=== PATIENT | female | born 1960 | race Caucasian/White ===

== ENCOUNTER 2023-09-23 14:01 | Emergency (ER) | payer OTHER, SELFPAY ==
[2023-09-23] VITALS (7 sets, daily range): BP systolic 124–152; BP diastolic 80–100
--- NOTE | 2023-09-23 15:32 | ED.GENMED ---
History of Present Illness
<Sandee Castorena NP - Last Filed: 09/23/23 23:43>
General
Chief Complaint: Abdominal Symptoms
Source: patient and family (daughter)
Time Seen by Provider: 09/23/23 15:01
Nursing documentation reviewed up to this point in time: agreed with
Travel History
Have you had any contact with someone who has COVID-19?: No
Do you have any symptoms of coronavirus? Fever > 100 degrees, chills, cough, shortness of breath, sore throat, loss of taste or smell, muscle aches, or headache?: No
History of Present Illness
History of Present Illness:
Patient to ED with complaint of RUE pain, n/v x 2 days. 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 Receiving treatment thru [facility]. According to daughter she is receiveing chemo and immunotherapy. Last Chemo was 13 days ago. Next treatment is
scheduled for tomorrow. Daughter reports that she has complained of RUE pain since May. Taking MSO4 and oxycodone for pain but it has not been relieving her pain this weekend. Patient also reports low grade temp at home. Brought to ED by
family friend for eval.
Past History
<Sandee Castorena NP - Last Filed: 09/23/23 23:43>
Past History
ED Past Medical History: Arrthythmia (SVT), Cancer (cholangiocarcinoma), HTN and NIDDM
ED Past Surgical History: Cardiac (abation), Orthopedic, Tonsilectomy and Other (hernia repair x 2, breast surgery)
Social History
Tobacco: Smoker (1ppd)
Alcohol: None
Drug: Marijuana (occasional)
Personal: Single
Living: alone
Review of Systems
<Sandee Castorena NP - Last Filed: 09/23/23 23:43>
Review of Systems
Allergies reviewed?: Yes
All Other Systems: ROS reviewed and negative except as documented in HPI and ROS
Constitutional: Reports fever (low grade temp at home)
EENT: Reports no symptoms
Respiratory: Reports no symptoms
Cardiac: Reports no symptoms
ABD/GI: Reports abdominal pain (RUQ, right flank), nausea and vomiting
: Reports no symptoms
Musculoskeletal: Reports joint pain (RUE pain)
Skin: Reports no symptoms
Neurological: Reports no symptoms
Psychiatric: Reports no symptoms
Phy Exam
<Sandee Castorena NP - Last Filed: 09/23/23 23:43>
General Physical Exam
General Presentation: no apparent distress
General age: appears stated age
General Skin: warm and dry
General Habitus: frail
General Mental: alert
Cardiovascular Exam
Cardiovascular Exam: regular rate/rhythm and no edema
Pulmonary Exam
Pulmonary Exam: lungs clear and no respiratory distress
Gastrointestinal Exam
Gastrointestinal Exam: normal bowel sounds, soft, no pulsatile mass, no cva tenderness and ascites
Palpation: left upper quadrant: No tenderness, left lower quadrant: No tenderness, right upper quadrant: Minimal tenderness and right lower quadrant: No tenderness
Musculoskeletal Exam
Musculoskeletal Exam: full ROM, neuro vasc intact and other (RUE pain. No pain to palpation, no swelling)
Skin Exam
Skin Exam: warm/dry and other (dime sized open blister under left breast)
Psychiatric Exam
Psychiatric Exam: normal mood/affect
Course
<Sandee Castorena DELI DEPARTMENT MANAGER - Last Filed: 09/23/23 23:43>
Orders/Labs/Results
Orders:
Orders
09/23/23 14:09
EKG [Electrocardiogram (*1)] Urgent
Reason for Study: Abdominal Pain
EKG- Treatment ONCE
09/23/23 15:19
0.9% Sodium Chloride 1000 ml [Nss] 1,000 ml IV BOLUS
Ondansetron Injectable [Zofran] 4 mg IV NOW STA
09/23/23 15:29
US Abdomen Complete/Upper Urgent
Comment:
Reason For Exam: RUQ, flank pain. current dx cholangiocarcinoma
09/23/23 15:31
Complete Blood Count/With Diff Urgent
Comprehensive Metabolic Panel Urgent
Lactic Acid Urgent
Blood Culture Q30M
KELECHI Source: Blood/Venous
Specimen Description:
09/23/23 15:34
Blood Culture Q30M
KELECHI Source: Blood/Venous
Specimen Description:
09/23/23 15:46
Wound Culture [Wound/Abscess/Other Culture] Urgent
KELECHI Source: Breast
Specimen Description: Left
Date Specimen was Collected: 09/23/23
Time Specimen was Collected: 15:45
09/23/23 16:42
CT Abd/pelvis W Iv Cont Urgent
Comment:
Reason For Exam: Right abd. pain
09/23/23 21:00
Urinalysis Reflex To Culture Urgent
Date Specimen was Collected: 09/23/23
Time Specimen was Collected: 15:21
09/23/23 22:26
HYDROmorphone [Dilaudid] 0.5 mg IV NOW STA
09/23/23 23:34
Piperacillin/Tazo 3.375 Gram [Zosyn] 3.375 gram in 50 ml IV NOW
09/24/23 00:04
CT Chest Pe Study Urgent
Reason For Exam: Pain, metastatic CA
09/24/23 00:25
Urine Microscopic Reflex Cult Urgent
Urine Culture Urgent
KELECHI Source: U
Specimen Description:
Date Specimen was Collected: 09/23/23
Time Specimen was Collected: 15:21
09/24/23 01:34
HYDROmorphone [Dilaudid] 1 mg .ROUTE .STK-MED ONE
Ondansetron Injectable [Zofran] 4 mg .ROUTE .STK-MED ONE
09/24/23 01:37
Ondansetron Injectable [Zofran] 4 mg IV NOW STA
09/24/23 01:38
HYDROmorphone [Dilaudid] 1 mg IV NOW STA
09/24/23 01:40
Heparin Pf [Heparin Lock Flush] 500 unit .ROUTE .STK-MED ONE
Abnormal Lab Results
09/23/23 09/24/23
15:31 00:25
WBC 13.6 H 10^3/uL
(4.8-10.8)
RBC 4.02 L 10^6/uL
(4.20-5.40)
Hgb 11.8 L g/dL
(12.0-16.0)
Hct 34.4 L %
(37.0-47.0)
RDW 16.5 H %
(11.5-14.5)
Abs Immat Gran (auto) 0.1 H 10^3/uL
(0-0.05)
Absolute Neuts (auto) 12.3 H 10^3/uL
(1.4-6.5)
Absolute Lymphs (auto) 0.6 L 10^3/uL
(1.2-3.4)
Immature Gran % 0.7 H %
(0-0.5)
Neutrophils % 90.7 H %
(42.2-75.2)
Lymphocytes % 4.6 L %
(20.5-51.1)
Sodium 130 L mmol/L
(135-145)
Chloride 97 L mmol/L
(98-107)
Creatinine 0.4 L mg/dL
(0.6-1.0)
Glucose 193 H mg/dl
(70-99)
Alkaline Phosphatase 173 H U/L
(38-126)
Urine Ketones 3+ A
(Negative)
Urine Nitrite (Reflex) Positive A
(Negative)
Leukocyte Esterase Rfl Trace A
(Negative)
Urine WBC (Reflex) >100 A /HPF
(0-5)
Urine Bacteria (Reflex) Many A
(Negative)
09/23/23 15:31
09/23/23 15:31
Vital Signs
Initial and Last Documented VS:
Initial Vital Signs
Temp Pulse Resp BP Pulse Ox
97.6 F 106 17 126/80 95
09/23/23 14:07 09/23/23 14:07 09/23/23 14:07 09/23/23 14:07 09/23/23 14:07
Last Documented Vital Signs
Temp Pulse Resp BP Pulse Ox
97.6 F 106 16 129/76 90
09/23/23 14:07 09/24/23 03:17 09/24/23 03:17 09/24/23 03:17 09/23/23 23:15
<Benjamín Rebolledo PA-C - Last Filed: 09/26/23 08:58>
Orders/Labs/Results
Orders:
Orders
09/23/23 14:09
EKG [Electrocardiogram (*1)] Urgent
Reason for Study: Abdominal Pain
EKG- Treatment ONCE
09/23/23 15:19
0.9% Sodium Chloride 1000 ml [Nss] 1,000 ml IV BOLUS
Ondansetron Injectable [Zofran] 4 mg IV NOW STA
09/23/23 15:29
US Abdomen Complete/Upper Urgent
Comment:
Reason For Exam: RUQ, flank pain. current dx cholangiocarcinoma
09/23/23 15:31
Complete Blood Count/With Diff Urgent
Comprehensive Metabolic Panel Urgent
Lactic Acid Urgent
Blood Culture Q30M
KELE[facility]I Source: Blood/Venous
Specimen Description:
09/23/23 15:34
Blood Culture Q30M
KELE[facility]I Source: Blood/Venous
Specimen Description:
09/23/23 15:46
Wound Culture [Wound/Abscess/Other Culture] Urgent
KELECHI Source: Breast
Specimen Description: Left
Date Specimen was Collected: 09/23/23
Time Specimen was Collected: 15:45
09/23/23 16:42
CT Abd/pelvis W Iv Cont Urgent
Comment:
Reason For Exam: Right abd. pain
09/23/23 21:00
Urinalysis Reflex To Culture Urgent
Date Specimen was Collected: 09/23/23
Time Specimen was Collected: 15:21
09/23/23 22:26
HYDROmorphone [Dilaudid] 0.5 mg IV NOW STA
09/23/23 23:34
Piperacillin/Tazo 3.375 Gram [Zosyn] 3.375 gram in 50 ml IV NOW
09/24/23 00:04
CT Chest Pe Study Urgent
Reason For Exam: Pain, metastatic CA
09/24/23 00:25
Urine Microscopic Reflex Cult Urgent
Urine Culture Urgent
KELECHI Source: U
Specimen Description:
Date Specimen was Collected: 09/23/23
Time Specimen was Collected: 15:21
09/24/23 01:34
HYDROmorphone [Dilaudid] 1 mg .ROUTE .STK-MED ONE
Ondansetron Injectable [Zofran] 4 mg .ROUTE .STK-MED ONE
09/24/23 01:37
Ondansetron Injectable [Zofran] 4 mg IV NOW STA
09/24/23 01:38
HYDROmorphone [Dilaudid] 1 mg IV NOW STA
09/24/23 01:40
Heparin Pf [Heparin Lock Flush] 500 unit .ROUTE .STK-MED ONE
Abnormal Lab Results
05/05/24 05/06/24
15:31 00:25
WBC 13.6 H 10^3/uL
(4.8-10.8)
RBC 4.02 L 10^6/uL
(4.20-5.40)
Hgb 11.8 L g/dL
(12.0-16.0)
Hct 34.4 L %
(37.0-47.0)
RDW 16.5 H %
(11.5-14.5)
Abs Immat Gran (auto) 0.1 H 10^3/uL
(0-0.05)
Absolute Neuts (auto) 12.3 H 10^3/uL
(1.4-6.5)
Absolute Lymphs (auto) 0.6 L 10^3/uL
(1.2-3.4)
Immature Gran % 0.7 H %
(0-0.5)
Neutrophils % 90.7 H %
(42.2-75.2)
Lymphocytes % 4.6 L %
(20.5-51.1)
Sodium 130 L mmol/L
(135-145)
Chloride 97 L mmol/L
(98-107)
Creatinine 0.4 L mg/dL
(0.6-1.0)
Glucose 193 H mg/dl
(70-99)
Alkaline Phosphatase 173 H U/L
(38-126)
Urine Ketones 3+ A
(Negative)
Urine Nitrite (Reflex) Positive A
(Negative)
Leukocyte Esterase Rfl Trace A
(Negative)
Urine WBC (Reflex) >100 A /HPF
(0-5)
Urine Bacteria (Reflex) Many A
(Negative)
09/23/23 15:31
09/23/23 15:31
Vital Signs
Initial and Last Documented VS:
Initial Vital Signs
Temp Pulse Resp BP Pulse Ox
97.6 F 106 17 126/80 95
09/23/23 14:07 09/23/23 14:07 09/23/23 14:07 09/23/23 14:07 09/23/23 14:07
Last Documented Vital Signs
Temp Pulse Resp BP Pulse Ox
97.6 F 106 16 129/76 90
09/23/23 14:07 09/24/23 03:17 09/24/23 03:17 09/24/23 03:17 09/23/23 23:15
<Sandee Castorena NP - Last Filed: 09/23/23 23:43>
*Radiology
Radiology exam reviewed: radiology read reviewed
*Pulse Oximetry
Patient hypoxic: no
<Sandee Castorena NP - Last Filed: 09/23/23 23:43>
Update Note
Update Note:
Patient to ED with complaint of vomiting x 2 days. Mild RUQ tenderness but reports it is not any worse than her typical. Labs, CT reviewed. RLL pnuemonia noted. Discussed abdominal/pelvic findings with Dr. Suárez ([facility]), and Dr. Lara
(Hospitalist [facility]). CT findings today confirm worsening metastatic disease. There is no obstruction at this time. Patient has responded well to IVF, pain meds. Discussed tonights findings with her daughter by phone. Daughter is concerned over
potential biliary obstruction and would prefer transfer to patients providers at [place]. Dr. Lara will accept transfer. Will transfer to [facility].
<Benjamín Rebolledo PA-C - Last Filed: 09/26/23 08:58>
Update Note
Update Note:
Patient to ED with complaint of vomiting x 2 days. Mild RUQ tenderness but reports it is not any worse than her typical. Labs, CT reviewed. RLL pnuemonia noted. Discussed abdominal/pelvic findings with Dr. Suárez ([facility]), and Dr. Lara
(Hospitalist [facility]). CT findings today confirm worsening metastatic disease. There is no obstruction at this time. Patient has responded well to IVF, pain meds. Discussed tonights findings with her daughter by phone. Daughter is concerned over
potential biliary obstruction and would prefer transfer to patients providers at [place]. Dr. Lara will accept transfer. Will transfer to [facility].
September 8 a 50 8 AM: Urine culture demonstrates greater than 100,000 gram-negative bacilli. Will fax these results to [facility] for their review
ED Attending Note
<Sandee Castorena NP - Last Filed: 09/23/23 23:43>
-
Portions of this chart may have been created with voice recognition software.� Occasional wrong word or��sound alike� substitutions may have occurred due to the inherent limitations of voice recognition software.
Discharge Plan
Departure
Patient Disposition: Acute Care Hospital
Date of Disposition: 09/24/23
Time of Disposition: 00:12
Discharge Problem:
Intractable vomiting, Cholangiocarcinoma
Referrals:
UNKNOWN - PT DOES,NOT KNOW [Family Provider] -
Hospital Transfer
Other hospital: [facility]
I certify that the patient requires transfer: Yes
Discussed case with accepting physician: Dr. Lara
Reason for transfer: higher level of care
Interventions
Interventions:
*Risk Screen - Suicide Last Done: 09/23/23 15:37
*General Assessment Last Done: 09/24/23 03:35
*Neglect/Abuse Screening Last Done: 09/23/23 15:37
ED- Fall Risk Assessment Last Done: 09/24/23 03:35
*ED COVID-19 Vaccine History Last Done: 09/23/23 15:37
*Nursing Disposition Last Done: 09/24/23 03:35
RH-Qywcoo-Wwdxjcvolb Assessment Last Done: 09/23/23 15:37
Discharge Date and Time
Discharge Date/Time: 09/24/23 03:39
Print Language: WELSH
[2023-09-23] MEDS: NSS 1000 IV (15:35)
[2023-09-23] MEDS: ZOFRAN 4 MG IV (15:35)
[2023-09-23 16:00] LABS: % Basophils 0.3 % (0-2); % Immature Granulocytes 0.7 % (0-0.5); % Lymphocytes 4.6 % (20.5-51.1); % Monocytes 3.7 % (1.7-9.3); % Neutrophils 90.7 % (42.2-75.2); Absolute Immature Granulocytes 0.1 10^3/uL (0-0.05); Absolute Lymphocytes 0.6 10^3/uL (1.2-3.4); Absolute Monocytes 0.5 10^3/uL (0.1-0.6); Absolute Neutrophils 12.3 10^3/uL (1.4-6.5); Hematocrit 34.4 % (37.0-47.0); Hemoglobin 11.8 g/dL (12.0-16.0); Mean Corp Hgb Conc. 34.3 g/dL (33.0-37.0); Mean Corpuscular Hgb 29.4 pg (27.0-31.0); Mean Corpuscular Volume 85.6 fL (81.0-99.0); Mean Platelet Volume 9.5 fL (7.4-10.4); Nucleated Red Blood Cells % 0 %; Platelet Count 207 10^3/uL (130-400); Red Blood Cell Count 4.02 10^6/uL (4.20-5.40); Red Cell Dist. Width 16.5 % (11.5-14.5); White Blood Cell Count 13.6 10^3/uL (4.8-10.8)
[2023-09-23 16:08] LABS: Lactic Acid 1.3 mmol/L (0.7-2.0)
[2023-09-23 16:13] LABS: ALT (SGPT) 14 U/L (0-35); AST (SGOT) 32 U/L (14-36); Albumin 3.7 g/dl (3.5-5.0); Alkaline Phosphatase 173 U/L (38-126); Blood Urea Nitrogen 15 mg/dl (7-17); Calcium 9.4 mg/dl (8.4-10.2); Carbon Dioxide 24 mmol/L (22-30); Chloride 97 mmol/L (98-107); Glucose 193 mg/dl (70-99); Potassium 4.8 mmol/L (3.5-5.1); Sodium 130 mmol/L (135-145); Total Bilirubin 0.6 mg/dl (0.2-1.3); Total Protein 7.3 g/dl (6.3-8.2); eGFR > 60.00
[2023-09-23] MEDS: DILAUDID 0.5 MG IV (22:31)
[2023-09-24] MEDS: ZOSYN 50 IV (00:27)
[2023-09-24 00:36] LABS: Urine Albumin Trace (Neg - Trace); Urine Bilirubin Negative (Negative); Urine Character Slightly Cloudy (Clear); Urine Color Yellow; Urine Glucose Negative (Negative); Urine Ketone 3+ (Negative); Urine Leukocyte Trace (Negative); Urine Nitrite Positive (Negative); Urine Occult Blood Negative (Negative); Urine Specific Gravity 1.015 (<1.030); Urine Urobilinogen Negative (Neg - 1+)
[2023-09-24 00:41] LABS: Urine Squamous Cell >30 /LPF (Few)
[2023-09-24 00:42] LABS: Urine Amorphous Seen; Urine White Cell >100 /HPF (0-5)
[2023-09-24 00:43] LABS: Urine Bacteria Many (Negative); Urine Red Blood Cell 0-2 /HPF (0-2)
[2023-09-24 01:37] VITALS: BP 168/85
[2023-09-24] MEDS: DILAUDID 1 MG IV (01:38)
[2023-09-24] MEDS: ZOFRAN 4 MG IV (01:38)
[2023-09-24 03:17] VITALS: BP 129/76
== END 2023-09-24 03:39 | disposition short-term general hospital (02) ==
LOC: EMR 14:01
PROVIDERS: Nurse Practitioner; EMERGENCY PHYSICIAN Emergency Medicine
DX: R11.2 Nausea with vomiting, unspecified (principal); C22.1 Intrahepatic bile duct carcinoma; M79.601 Pain in right arm; I47.10 Supraventricular tachycardia, unspecified; I10 Essential (primary) hypertension; E11.9 Type 2 diabetes mellitus without complications
CPT/HCPCS: 99284; 71275; 74177; 76700; 80053; 81003; 81015; 83605; 85025; 87040; 87070; 87077; 87086; 87186; 87205; 93005; Q9967